=== PATIENT | female | born 1960 | race Caucasian/White ===

== ENCOUNTER 2024-11-09 22:41 | Emergency (ER) | payer BC ==
[~2024-11-09] VITALS: Ht 172.7 cm; Wt 83.5 kg
[~2024-11-09 22:41] MED LIST: CARVEDILOL6.25 MG PO; TRIBENZOR 20-51 EACH PO
[2024-11-09] MEDS ORDERED: Morphine 4mg INJECTION 4 MG/ML INJ IV STA (22:45)
[2024-11-09 22:46] VITALS: PULSE 80; RESP 20; TEMP 99
[2024-11-09] MEDS: KETOROLAC TROMETHAMINE 30 MG/ML VIAL IV STA (22:52)
[2024-11-09 23:03] LABS: BASOPHILS % 0.6 % (0.0-1.0); EOSINOPHILS # (AUTO) 0.2 (0.0-0.4); EOSINOPHILS % 3.3 % (0.0-6.0); HEMATOCRIT 41.8 % (34.2-44.1); HEMOGLOBIN 12.6 g/dL (12.0-16.0); LYMPHOCYTES # (AUTO) 1.6 (1.0-3.2); LYMPHOCYTES % 31.8 % (18.0-39.1); MEAN CORPUSCULAR HEMOGLOBIN 27.9 pg (28-32); MEAN CORPUSCULAR HGB CONC 30.1 g/dL (31-35); MEAN CORPUSCULAR VOLUME 92.5 fL (81-99); MONOCYTES # (AUTO) 0.6 (0.2-0.8); MONOCYTES % 10.7 % (4.4-11.3); NEUTROPHILS # (AUTO) 2.8 (2.1-6.9); NEUTROPHILS % 53.4 % (38.7-80.0); PLATELET COUNT 194 x10e3/uL (140-360); RED BLOOD COUNT 4.52 x10e6/uL (3.6-5.1); RED CELL DISTRIBUTION WIDTH 13.5 % (11.7-14.4); WHITE BLOOD COUNT 5.16 x10e3/uL (4.8-10.8)
[2024-11-09] MEDS: ONDANSETRON HCL INJ 2MG/ML 2ML 2 MG/ML VIAL IV STA (23:25)
[2024-11-09 23:26] LABS: ALANINE AMINOTRANSFERASE 22 IU/L (0-55); ALBUMIN 3.7 g/dL (3.5-5.0); ALBUMIN/GLOBULIN RATIO 1.2 (0.8-2.0); ALKALINE PHOSPHATASE 64 IU/L (40-150); ANION GAP 15.2 mmol/L (8-16); BILIRUBIN,TOTAL 0.6 mg/dL (0.2-1.2); BLOOD UREA NITROGEN 22 mg/dL (7-26); BUN/CREATININE RATIO 18 (6-25); CALCIUM 9.3 mg/dL (8.4-10.2); CARBON DIOXIDE 23 mmol/L (22-29); CHLORIDE 107 mmol/L (98-107); CREATINE KINASE 224 IU/L (29-168); EST GLOMERULAR FILTRATION RATE 51 ML/MIN (>=60); GLUCOSE 118 mg/dL (74-118); LIPASE 24 U/L (8-78); POTASSIUM 4.2 mmol/L (3.5-5.1); SODIUM 141 mmol/L (136-145); TOTAL PROTEIN 6.7 g/dL (6.5-8.1)
[2024-11-09] MEDS: Morphine 4mg INJECTION 4 MG/ML INJ IV ONE (23:26)
[2024-11-09] MEDS: SODIUM CHLORIDE 0.9% 1000ML 1,000 ML IV STA (23:26)
[2024-11-09 23:28] LABS: TROPONIN I < 0.05 ng/mL (0.0-0.40)
[2024-11-10 00:01] LABS: CLARITY,URINE SL CLOUDY (CLEAR); COLOR,URINE YELLOW (YELLOW); GLUCOSE, URINE NEGATIVE (NEGATIVE); LEUKOCYTE ESTERASE ,URINE NEGATIVE (NEGATIVE); NITRITE,URINE NEGATIVE (NEGATIVE); PH,URINE 6 (5 - 7); PROTEIN,URINE DIPSTICK 1+ (NEGATIVE)
[2024-11-10 00:02] LABS: BACTERIA,URINE FEW /HPF; BILIRUBIN,URINE NEGATIVE (NEGATIVE); EPITHELIAL CELLS,URINE RARE /LPF; KETONES,URINE NEGATIVE (NEGATIVE); RBC,URINE 21-50 /HPF (0-5); URINE UROBILINOGEN 0.2 mg/dL (0.2 - 1); WBC,URINE (MAN) 0-5 /HPF (0-5)
[2024-11-10] MEDS ORDERED: IOPAMIDOL 370 MG/ML 100 ML INFUS..BTL INJ ONE (00:11)
[2024-11-10] MEDS ORDERED: ULTRAM 50MG50 MG PO (01:44)
[2024-11-10] MEDS ORDERED: KETOROLAC TROME10 MG PO (01:44)
[2024-11-10] MEDS ORDERED: FLOMAX0.4 MG PO (01:44)
[2024-11-10] MEDS ORDERED: ONDANSETRON ODT4 MG PO (01:44)
[2024-11-10 02:01] VITALS: BP 174/86; O2SAT 99
== END 2024-11-10 02:03 | disposition home or self-care (01) ==
LOC: ER 22:48
DX: R10.32 Left lower quadrant pain (principal); N20.1 Calculus of ureter; R33.9 Retention of urine, unspecified; K57.90 Diverticulosis of intestine, part unspecified, without perforation or abscess without bleeding; R11.2 Nausea with vomiting, unspecified
CPT/HCPCS: 36415; 51702; 74177; 80053; 81001; 82550; 83690; 84484; 85025; 87086; 93005; 99284; J2270; J2405; J7030; Q9967; 51700